=== PATIENT | male | born 1965 | race Caucasian/White ===

== ENCOUNTER 2024-11-26 06:19 | Day surgery (SDC) | payer OTHER, SELFPAY | END 2024-11-26 15:27 | disposition home or self-care (01) | LOC: GI 06:19 | PROVIDERS: ATTENDING PHYSICIAN Internal Medicine; FAMILY PHYSICIAN Family Medicine | DX: Z12.11 Encounter for screening for malignant neoplasm of colon (principal); Z80.0 Family history of malignant neoplasm of digestive organs; D12.3 Benign neoplasm of transverse colon | CPT/HCPCS: 45385; 88305 ==